=== PATIENT | female | born 1990 | race Caucasian/White ===

== ENCOUNTER 2016-12-14 03:35 | Inpatient (IN) | payer OTHER ==
[~2016-12-14] VITALS: Ht 170.2 cm; Wt 71.2 kg
[2016-12-14] MEDS ORDERED: Sodium Citrate-Citric Acid 15 mL Solution PO SCH ×2 (05:25→06:40)
[2016-12-14] MEDS ORDERED: CeFAZolin Inj 2 GM in IV Premix 1 EACH IV ONE (05:55)
[2016-12-14] MEDS ORDERED: Lactated Ringer's 1,000 ML IV ONE (06:32)
[2016-12-14] MEDS ORDERED: Lactated Ringer's 1,000 ML IV PRN (06:34)
[2016-12-14] MEDS ORDERED: EPHEDrine Sulfate 50 mg/mL Inj IVPUSH PRN (06:35)
[2016-12-14] MEDS ORDERED: fentaNYL-PF 50 mCg/mL 2 mL Inj IVPUSH PRN (06:35)
[2016-12-14] MEDS ORDERED: Oxytocin 30 Units/500 mL LR 30 UNITS in IV Premix 1 EACH IV PRN ×2 (06:35→08:35)
[2016-12-14] MEDS ORDERED: Methylergonovine 0.2 mg/mL Inj IM PRN ×2 (06:35→08:35)
[2016-12-14] MEDS ORDERED: Atropine 0.4 mg/mL Inj IV PRN (06:35)
[2016-12-14] MEDS ORDERED: Hemorrhage Kit, Post Partum XX ONE ×2 (06:35→08:35)
[2016-12-14] MEDS ORDERED: Ondansetron 2 mg/mL 2 mL Inj IVPUSH PRN (06:35)
[2016-12-14] MEDS ORDERED: Carboprost 250 mCg/mL Inj IM PRN ×2 (06:35→08:35)
[2016-12-14] MEDS ORDERED: Sodium Chloride LOK Flush 10 mL Syringe IVFLUSH PRN ×2 (06:35→08:35)
[2016-12-14] MEDS ORDERED: Oxytocin 10 Unit/mL Inj IM PRN ×2 (06:35→08:35)
--- NOTE | 2016-12-14 06:35 | PCM.HPANE ---
Patient Data Surgeon Admitting Provider:Genaro Valdez MD Attending Provider:Genaro Valdez MD Primary Care Physician:Genaro Valdez MD Other Provider:Marcellus Rosales Anesthesia Reason for Visit TERM TERM Ht/WT & BMI Body Mass Index Past Anesthesia History Anesthesia History: Denies:: Abnormal Airway, Difficult Intubation Diabetes History Hx Diabetes?: No MRSA MRSA: No Medications Hypertension Medication: No Home Meds Incl Beta Robert: No History History of ENT Problems?: No HEENT History: Denies:: Abnormal Airway Cataracts Difficult Intubation Dysphagia Glaucoma Hearing Problem Sinus Problem TMJ Denture Type: None Teeth Condition: Within Normal Limits Hx of Heart Problems?: No Cardiovascular History: Denies:: AICD Abdominal Aortic Aneurism Atrial Fibrillation Cardiac Surgery Chest Pain Congestive Heart Failure Coronary Artery Disease Edema Heart Murmur Hypertension Irregular Heartbeat Pacemaker Peripheral Vascular Rheumatic Fever Thrombophlebitis Valvular Heart Disease Hx of Respiratory Problem?: No Respiratory History: Denies:: Asthma COPD Chest Surgery Cough Dyspnea Emphysema Hemoptysis Oxygen Administration Pneumonia Pulmonary Embolism Tuberculosis Use of C-PAP Machine Use of Inhalers / NEBS Hx Neurologic Problems?: No Neurological History: Denies:: Alzheimer's Disease CVA Dementia Dizziness Headaches Multiple Sclerosis Parkinson's Disease Peripheral Neuropathy Seizures TIA Hx of GI Problems?: No Hx of Problems?: No HX of Peritoneal Dialysis: No Female Hx: Positive for:: Currently Hx Musculoskeletal Problems?: No Hx of Psycho/Social Problems?: No Hx Surgeries?: No Hx Any Other Health Problems?: No Hx Diabetes: No Hx Alcohol Use: NoHx Substance Use: No Smoking Status: Never Smoker Have You Smoked inLast 12 mo: No Stop/Bang Treated for Sleep Apnea?: No Do You Have a CPAP Machine?: No Risk Assessment Category Category 1A: Patient has history of documented sleep apnea, and HAS NOT received any narcotic, sedative or anesthesia administration during this stay. Category 1B: Patient has history of documented sleep apnea, and HAS received any narcotic , sedative or anesthesia administration during this stay Category 2: Patient has SUSPECTED Obstructive Sleep Apnea, and HAS received any narcotic , sedative or anesthesia administration during this stay. Category 3: Patient has SUSPECTED Obstructive Sleep Apnea and HAS NOT received narcotic, sedative or anesthesia administration during this stay. Category 4: Outpatient in Procedural Areas with known sleep apnea or who screen positive for High Risk via the STOP/BANG questionnaire. Exam Exam General Appearance: Alert, Oriented X3, Cooperative, No Acute Distress HEENT/AIRWAY: MP 2 Lungs: Clear to Auscultation, Normal Air Movement Heart: Exam Unremarkable, Regular Rate/Rhythm, No Murmurs/Rubs/Gallops Meds/Labs/Diagnostics Labs Test 12/14/16 05:30 Hold Purple Top Tube Received (Received) Plan Impression Patient chart reviewed, patient interviewed and anesthestic plan with risks, benefits, and alternatives discussed, and informed consent obtained. ASA Physical Status: ASA1 Normal Healthy Anesthetic Plan: SAB Bene/Risks/Altern/Consents: Yes HP Complete Prior to Induction: Yes Agus Hanna MD Dec 14, 2016 06:35
[2016-12-14] MEDS ORDERED: CeFAZolin Inj 2 GM in IV Premix 1 EACH IV SCH (06:40)
[2016-12-14 06:55] LABS: Mean Corpuscular Hemoglobin 24.2 pg (27.0-35.0); Mean Corpuscular Volume 73.6 fL (81-100)
[2016-12-14] MEDS ORDERED: Morphine PF 1 mg/mL 10 mL Inj ONE (07:16)
[2016-12-14] MEDS ORDERED: Erythromycin 0.5% 1 Gm Ophthalmic Ointment BOTH_EYES ONE (08:30)
[2016-12-14] MEDS ORDERED: Sucrose 24% 15 mL Solution PO PRN (08:30)
[2016-12-14] MEDS ORDERED: Phytonadione (Neonate) 1 mg/0.5 mL Inj IM ONE (08:30)
[2016-12-14] MEDS ORDERED: Hepatitis-B (PED)(DSHS) 10 mCg/0.5 ML Vaccine IM ONE (08:30)
[2016-12-14] MEDS ORDERED: LANOlin HPA 7 Gm Ointment TOPICAL PRN (08:35)
[2016-12-14] MEDS ORDERED: diphenhydrAMINE 50 mg Capsule PO PRN (08:35)
[2016-12-14] MEDS ORDERED: hydrOXYzine Pamoate 25 mg Capsule PO PRN (08:35)
[2016-12-14] MEDS ORDERED: HYDROcodone-APAP 5-325 mg Tablet PO PRN (08:35)
[2016-12-14] MEDS: Acetaminophen IV 1,000 MG in IV Premix 1 EACH IV PRN ×2 (10:05→19:46)
[2016-12-14] MEDS ORDERED: Oxytocin 10 Unit/mL Inj ONE (10:06)
[2016-12-14] MEDS: Lactated Ringer's 1,000 ML IV SCH ×2 (16:31→17:32)
[2016-12-15] MEDS: Lactated Ringer's 1,000 ML IV SCH ×3 (00:31→16:31)
[2016-12-15] MEDS: oxyCODONE-Acetamin 5-325 mg Tablet PO PRN ×5 (05:27→21:20)
[2016-12-15 07:22] LABS: Mean Corpuscular Hemoglobin 23.7 pg (27.0-35.0); Mean Corpuscular Volume 75.9 fL (81-100)
--- NOTE | 2016-12-15 08:01 | PCM.PNOBPP ---
Subjective Date of Service Dec 15, 2016 Post : Primary Cesere[place] Delivery Lochia: Normal Gastrointestinal: Good Appetite, No N/V Postop Activity: Ambulating Independently Labs Laboratory Tests 12/14/16 05:30: Hold Purple Top Tube Received 12/15/16 06:55: White Blood Count 11.5, Red Blood Count 2.41, Hemoglobin 5.7, Hematocrit 18.3, Mean Corpuscular Volume 75.9, Mean Corpuscular Hemoglobin 23.7, Mean Corpuscular Hemoglobin Concent 31.1, Red Cell Distribution Width 15.1, Platelet Count 110 Exam Vital Signs Vital Signs: VS reviewed, stable Exam Abdomen: Fundus firm Extremities: No cords Heart: Exam Unremarkable General: Alert, Oriented X3 Surgical Wound : Incision General Appearence: [place] Dressing & Drainage Status: Dry & Intact OB Post Assessment/Plan Problems: (1) Status post primary low transverse section Status: Acute ICD Code: Z98.891 Pain Evaluation: Adequate Pain Control Post plan: Discharge home tomorrow Genaro Valdez MD Dec 15, 2016 08:01
--- NOTE | 2016-12-15 08:52 | OP ---
[address] [address] OPERATIVE REPORT PATIENT: NNEKA GRUBER : 1990 MR#: [id number] ADMIT: 12/14/2016 JOB ID: [id number] DATE OF SURGERY: 12/14/2016 PREOPERATIVE DIAGNOSIS(ES): 1. 1, para 0 female at term. 2. Face presentation of fetus. POSTOPERATIVE DIAGNOSIS(ES): 1. 1, para 0 female at term. 2. Face presentation of fetus. SURGEON: Genaro Valdez MD ASSISTANT PRODUCER: Uri Gonzalez MD ANESTHESIA: Spinal. INDICATIONS: The patient had spontaneous rupture of membranes at midnight and progressed to 4 cm, [facility] [place] before the kid club attendant who was taking care of her then noted an unusual presentation. She was unsure whether she was feeling face or breech presentation. The patient was sent to [facility] for that reason. She was continuing to contract regularly and dilating to 6 cm. On arrival, two different nurses and myself examined her and I examined her by ultrasound and found that indeed this was a face presentation with the mentum being transverse. This presentation would require rotation to mentum anterior spontaneously during labor. I described to the patient and her family that this was a possibility, but that there was a less than 10% chance that she would deliver vaginally. I did give her the option to labor and see if this would happen given that there was no danger. The patient and her family discussed it and decided to have a . FINDINGS: 1. Normal uterus, tubes, and ovaries. 2. Likely over 10 pound baby, but the weight was not available at the time of this dictation. 3. Vigorous infant with Apgars of 8 and 9. PATHOLOGY: None. ESTIMATED BLOOD LOSS: 600 cc. INTRAVENOUS FLUIDS IN: 2200 cc of lactated Ringer's. URINE OUT: 200 cc of clear urine at the end of the procedure. DETAIL: The patient was consented and taken back to the OR where spinal anesthesia was performed. She was prepped and draped in the usual fashion. A procedural time-out was done. Ancef 2 g were given prior to incision. The patient's initial incision was made with a 15 blade in the low transverse fashion and carried down to the underlying layer of fascia with the same blade. The subcutaneous tissue was stretched and then the fascia was entered with a 15 blade. This incision was extended laterally in each direction using the Gallo scissors. The fascia was elevated both superiorly and inferiorly and dissected off the underlying layer of muscle using the Gallo scissors. There was a central defect in her muscle that allowed for entry into the abdomen and pelvis using her fingers to pull the peritoneal layer and the muscle apart. The bladder blade was placed. After this point, the bladder flap was created using Metzenbaum scissors being careful to avoid the underlying bladder. The bladder blade was reinserted. The uterus was entered with a knife, but final entry through the last layer of muscle was with the back of the knife and my fingers. This was done to avoid trauma to the baby's face and/or head. The bandage scissors were used to extend the uterine incision. Clear fluid was noted throughout. The delivered easily. Delayed cord clamping was observed for 30-40 seconds. Cord blood was sent for analysis. The placenta was given to the patient after the procedure. The placenta was manually extracted and then the uterus was exteriorized and cleared of all membranes. Once this had been done, the bladder blade was inserted and Allis clamps placed across the uterine incision. We then closed the uterus using 1-0 chromic in a running, locked fashion. A second imbricating layer was placed to the strength of the uterine incision, as well as prevent additional scarring. Bleeding was adequately controlled and irrigation of the pelvis was performed. The uterus was then replaced back into the pelvis. Prior to this, Pitocin had been started to help with the uterine tone. Uterine tone was excellent at this time. The uterine incision was observed multiple times for bleeding and none was found. Next, the abdominal muscles were closed using 2-0 chromic in a running fashion. The patient was thin, so no additional layers below the skin had to be closed. Her subcutaneous tissue was irrigated. The patient's incision was closed using jayson. A standard dressing was applied. The patient was in excellent condition following the procedure. Counts were correct x3.
[2016-12-15] MEDS ORDERED: fentaNYL 2 mCg/mL-Bupivicaine 0.125% 100 mL Premix EPIDURAL ONE (15:42)
[2016-12-16] MEDS: Lactated Ringer's 1,000 ML IV SCH ×2 (00:31→08:31)
[2016-12-16] MEDS: oxyCODONE-Acetamin 5-325 mg Tablet PO PRN ×3 (01:12→10:50)
--- NOTE | 2016-12-16 08:06 | PCM.DC.OB ---
Obstetrical Discharge Summary Date of Service Dec 16, 2016 Date of hospital admission Dec 14, 2016 at 03:36 Date of Discharge: Dec 16, 2016 Providers Admitting Physician: Genaro Valdez MD Primary Care Physician: Genaro Valdez MD Attending Physician: Genaro Valdez MD Problems: (1) Status post primary low transverse section Comment: Anemia with a hct of 18 noted...but patient has been asymptomatic and required no transfusion. Source of anemia is confusing since her surgical blood loss was so minimal as a fit patient with an uncomplicated course. Last Edited By: Genaro Valdez MD on Dec 16, 2016 08:02 Status: Acute ICD Code: Z98.891 (2) anemia Status: Acute ICD Code: O90.81 Consultations None Invasive procedures Primary Date of Procedure: Dec 14, 2016 Hospital Course: Patient presented in labor from the [facility]. She was 4 cm dilated with face presentation. They opted for . This went without complication but a anemia was noted to be quite severe at a hct of 18. Patient was not symptomatic and so the blood draw was repeated...found to be the same. Declined transfusion. Placed on iron. She was in excellent condition. Follow-up plan Wound check with me in two weeks. follow-up in 6-8 weeks with the midwives. Discharge Diet: No restrictions Discharge Activity-General: Pelvic Rest for 6 weeks, Try not to overdue, Be up and about, Balance rest and activity, Activity as pain allows, Activity as energy allows, No lifting >15 pounds for 2 weeks copies to: Camryn Guardado CNM, David B MD Dec 16, 2016 08:06
--- NOTE | 2016-12-16 08:09 | PCM.DIOB ---
Obstetrical Disch Instruction Date of Service: Dec 16, 2016 Dates of Hospitalization Date of Hospital Admission Dec 14, 2016 at 03:36 Providers Admitting Physician: Genaro Valdez MD Primary Care Physician: Genaor Valdez MD Attending Physician: Genaro Valdez MD Discharge Diagnosis Problems: (1) Status post primary low transverse section Permanent Comment: Last Edited By: Genaro Valdez MD on Dec 16, 2016 08:07 Status: Acute ICD Code: Z98.891 (2) anemia Status: Acute ICD Code: O90.81 Diet Discharge Diet: No restrictions Activity Discharge Activity-General: Pelvic Rest for 6 weeks, Try not to overdue, Be up and about, Balance rest and activity, Activity as pain allows, Activity as energy allows, No lifting >10 pounds for 4-6 weeks Dressing and Incisional Care Dressing Care: Allow Steri Stripes to fall off Hygiene: May shower, DO NOT soak incision under water, NO bathtub, hot tub or whirlpool Follow Up Plan Follow Up Plan See Dr. Valdez in two weeks for post surgical follow-up. Mid-level Provider (F9): Camryn Guardado CNM Follow-up appointment: Weeks (6) Call your provider for: Fever or Chills, Shortness of breath, Heavy vaginal bleeding, Excessive constipation, Red painful breasts Genaro Valdez MD Dec 16, 2016 08:08
[2016-12-16] MEDS ORDERED: OXYC1TAB24 PO (08:10)
[2016-12-16] MEDS ORDERED: IBUP800T28 PO (08:10)
[2016-12-16] MEDS ORDERED: FERR325T20 PO (08:10)
[2016-12-16] MEDS ORDERED: DOCU-41 PO (08:10)
[2016-12-16 11:02] VITALS: BP 110/65; PULSE 78; RESP 18
== END 2016-12-16 12:24 | disposition home or self-care (01) | DRG 766 ==
LOC: FBCO 03:35 → FBC 03:36
PROVIDERS: ADMIT Family Medicine; ATTEND Family Medicine
PROC: 10D00Z1 Extraction of Products of Conception, Low, Open Approach (ICD-10-PCS; principal; 2016-12-14 07:10)
DX: O32.3XX0 Maternal care for face, brow and chin presentation, not applicable or unspecified (principal); Z3A.41 41 weeks gestation of pregnancy; Z37.0 Single live birth; O48.0 Post-term pregnancy; O90.81 Anemia of the puerperium; D64.9 Anemia, unspecified